=== PATIENT | female | born 1940 | race Caucasian/White ===

== ENCOUNTER 2016-08-29 08:02 | Inpatient (IN) | payer MEDICARE, MEDICAID ==
[~2016-08-29] VITALS: Ht 157.5 cm; Wt 80.0 kg
[~2016-08-29 08:02] MED LIST: ASPI-515 PO; LEVO125C2 PO; LISI40TA PO; METF10002 PO; METF750T2 PO; PRAV20TA2 PO; PRAV80TA PO
[2016-08-29] MEDS ORDERED: ONDANSETRON 2MG/ML, 2ML IVPush ONE (09:00)
[2016-08-29] MEDS ORDERED: MORPHINE SULFATE 4 MG/ML, 1ML IVPush PRN (09:00)
[2016-08-29] MEDS ORDERED: SODIUM CHLORIDE FLUSH 10ML SYR IVF ONE (09:00)
[2016-08-29] MEDS ORDERED: SODIUM CHLORIDE 0.9% 1,000ML IVBOLUS ONE ×2 (09:00→11:30)
[2016-08-29 09:19] LABS: HEMOGLOBIN 17.1 g/dL (11.7-16.4)
[2016-08-29] MEDS ORDERED: ONDANSETRON 2MG/ML, 2ML ONE (09:23)
[2016-08-29] MEDS ORDERED: MORPHINE SULFATE 4 MG/ML, 1ML ONE (09:23)
[2016-08-29 09:33] LABS: ASPARTATE AMINO TRANSFERASE 26 U/L (15-37); BLOOD UREA NITROGEN 17 mg/dL (7-18)
[2016-08-29] MEDS ORDERED: OMNIPAQUE 350 MG/ML, 100ML BOTTLE ONE (10:34)
[2016-08-29] MEDS ORDERED: CEFTRIAXONE PMX 1GM/50ML 50 ML IV ONE (11:30)
[2016-08-29] MEDS ORDERED: NS + 20MEQ KCL 1,000 ML IV ONE (11:57)
[2016-08-29] MEDS ORDERED: D5%-0.45NACL+KCL 20MEQ 1,000 ML IV SCH (12:33)
[2016-08-29] MEDS ORDERED: LABETALOL 5MG/ML, 20ML IVPush PRN (13:00)
[2016-08-29] MEDS ORDERED: INSULIN ASPART 100 UNITS/ML, PEN SQ-INSULIN SCH (13:00)
[2016-08-29] MEDS ORDERED: ENALAPRILAT 1.25 MG/ML, 2ML IVPush PRN (13:00)
[2016-08-29] MEDS ORDERED: CEFTRIAXONE PMX 1GM/50ML 50 ML ONE (13:39)
[2016-08-29 14:41] VITALS: BP 125/81
[2016-08-29] MEDS: INSULIN ASPART 100 UNITS/ML, PEN SQ-INSULIN SCH ×2 (15:48→21:00)
[2016-08-29 19:21] VITALS: BP 109/72
[2016-08-29] MEDS: FAMOTIDINE 20 MG/2 ML IVPush SCH (21:42)
[2016-08-29] MEDS: DIPHENHYDRAMINE 50 MG/ML, 1ML IVPush PRN (23:13)
[2016-08-29] MEDS: D5%-0.45NACL+KCL 20MEQ 1,000 ML IV SCH (23:13)
[2016-08-30 01:07] VITALS: BP 130/68
[2016-08-30] MEDS: INSULIN ASPART 100 UNITS/ML, PEN SQ-INSULIN SCH ×4 (03:24→22:24)
[2016-08-30 05:56] LABS: HEMOGLOBIN 14.1 g/dL (11.7-16.4)
[2016-08-30] MEDS: D5%-0.45NACL+KCL 20MEQ 1,000 ML IV SCH ×3 (06:05→18:45)
[2016-08-30 06:14] LABS: BLOOD UREA NITROGEN 19 mg/dL (7-18)
[2016-08-30 07:40] VITALS: BP 148/91
[2016-08-30] MEDS: FAMOTIDINE 20 MG/2 ML IVPush SCH ×2 (08:14→22:08)
[2016-08-30] MEDS ORDERED: LEVOTHYROXINE SODIUM 200 MCG INJ IVPush SCH (09:00)
[2016-08-30 14:21] VITALS: BP 122/79
[2016-08-30] MEDS: morphine SULFATE 10 MG/ML, 1ML IVPush PRN (14:33)
[2016-08-30] MEDS: ONDANSETRON 2MG/ML, 2ML IVPush PRN (16:39)
[2016-08-30 18:29] VITALS: BP 128/76
[2016-08-30] MEDS: DIPHENHYDRAMINE 50 MG/ML, 1ML IVPush PRN (23:11)
[2016-08-31 01:40] VITALS: BP 126/80
[2016-08-31] MEDS: D5%-0.45NACL+KCL 20MEQ 1,000 ML IV SCH ×3 (02:05→22:04)
[2016-08-31] MEDS: INSULIN ASPART 100 UNITS/ML, PEN SQ-INSULIN SCH ×4 (03:00→21:39)
[2016-08-31] MEDS: morphine SULFATE 10 MG/ML, 1ML IVPush PRN ×2 (05:46→15:45)
[2016-08-31 06:32] VITALS: BP 152/80
[2016-08-31] MEDS: FAMOTIDINE 20 MG/2 ML IVPush SCH ×2 (10:19→21:28)
[2016-08-31] MEDS: LEVOTHYROXINE 100 MCG INJ IVPush SCH (10:20)
[2016-08-31 18:49] VITALS: BP 151/84
[2016-08-31] MEDS: DIPHENHYDRAMINE 50 MG/ML, 1ML IVPush PRN (22:07)
[2016-09-01 01:04] VITALS: BP 153/89
[2016-09-01] MEDS: INSULIN ASPART 100 UNITS/ML, PEN SQ-INSULIN SCH ×4 (02:48→21:00)
[2016-09-01] MEDS: D5%-0.45NACL+KCL 20MEQ 1,000 ML IV SCH ×4 (05:03→22:40)
[2016-09-01 07:04] VITALS: BP 169/99
[2016-09-01] MEDS: morphine SULFATE 10 MG/ML, 1ML IVPush PRN (07:45)
[2016-09-01] MEDS: ONDANSETRON 2MG/ML, 2ML IVPush PRN (07:53)
[2016-09-01] MEDS: FAMOTIDINE 20 MG/2 ML IVPush SCH ×2 (08:52→21:34)
[2016-09-01] MEDS: LEVOTHYROXINE 100 MCG INJ IVPush SCH (08:52)
[2016-09-01 15:03] VITALS: BP 135/81
[2016-09-01 20:30] VITALS: BP 151/87
[2016-09-02] MEDS: DIPHENHYDRAMINE 50 MG/ML, 1ML IVPush PRN ×2 (00:19→23:33)
[2016-09-02 01:20] VITALS: BP 154/84
[2016-09-02] MEDS: D5%-0.45NACL+KCL 20MEQ 1,000 ML IV SCH (05:20)
[2016-09-02] MEDS: INSULIN ASPART 100 UNITS/ML, PEN SQ-INSULIN SCH ×4 (06:43→21:00)
[2016-09-02 07:54] VITALS: BP 145/84
[2016-09-02] MEDS: LEVOTHYROXINE 100 MCG INJ IVPush SCH (09:38)
[2016-09-02] MEDS: FAMOTIDINE 20 MG/2 ML IVPush SCH ×2 (09:39→23:33)
[2016-09-02 13:22] VITALS: BP 132/84
[2016-09-02] MEDS: ONDANSETRON 2MG/ML, 2ML IVPush PRN (18:30)
[2016-09-02 20:05] VITALS: BP 134/78
[2016-09-02] MEDS: SODIUM CHLORIDE FLUSH 3ML SYRINGE IVF SCH (23:37)
[2016-09-03 04:04] VITALS: BP 124/61
[2016-09-03] MEDS: INSULIN ASPART 100 UNITS/ML, PEN SQ-INSULIN SCH ×2 (06:00→11:31)
[2016-09-03 08:05] VITALS: BP 154/90
[2016-09-03] MEDS: FAMOTIDINE 20 MG/2 ML IVPush SCH (08:11)
[2016-09-03] MEDS: LEVOTHYROXINE 100 MCG INJ IVPush SCH (08:12)
[2016-09-03] MEDS: SODIUM CHLORIDE FLUSH 3ML SYRINGE IVF SCH (08:12)
[2016-09-03 14:45] VITALS: BP 149/89
== END 2016-09-03 15:00 | disposition home or self-care (01) | DRG 390 ==
LOC: EDBD 10:40 → ED 10:40 → EDIP 12:33 → 4NOR 14:13
PROVIDERS: ADMIT Surgery; ATTEND Surgery
DX: K56.60 Unspecified intestinal obstruction (principal); D72.829 Elevated white blood cell count, unspecified; E03.9 Hypothyroidism, unspecified; E11.65 Type 2 diabetes mellitus with hyperglycemia; E66.9 Obesity, unspecified; E78.5 Hyperlipidemia, unspecified; E86.0 Dehydration; I10 Essential (primary) hypertension; Z85.41 Personal history of malignant neoplasm of cervix uteri; Z90.49 Acquired absence of other specified parts of digestive tract; Z90.710 Acquired absence of both cervix and uterus; Z68.32 Body mass index [BMI] 32.0-32.9, adult
CPT/HCPCS: 36415; 74020; 74177; 74250; 80048; 80053; 81001; 82962; 83605; 85025; 85610; 93005; 96361; 96374; 96375; J0696; J1815; J2405; J3480; Q9967; J1200; J2270; J7030; S0028

== ENCOUNTER 2017-07-08 19:25 | Emergency (ER) | payer MEDICARE, MEDICAID ==
[~2017-07-08] VITALS: Ht 165.1 cm; Wt 86.6 kg
[2017-07-08] MEDS ORDERED: MORPHINE SULFATE 4 MG/ML, 1ML ONE (19:53)
[2017-07-08] MEDS ORDERED: FAMOTIDINE 20 MG/2 ML ONE (19:53)
[2017-07-08] MEDS ORDERED: MAALOX/HYOSCYAMINE/LIDOCAINE 45 ML BTL ONE (19:53)
[2017-07-08] MEDS ORDERED: MORPHINE SULFATE 4 MG/ML, 1ML IVPush PRN (20:00)
[2017-07-08] MEDS ORDERED: MAALOX/HYOSCYAMINE/LIDOCAINE 45 ML BTL PO ONE (20:00)
[2017-07-08] MEDS ORDERED: SODIUM CHLORIDE 0.9% 1,000ML IVBOLUS ONE (20:00)
[2017-07-08] MEDS ORDERED: FAMOTIDINE 20 MG/2 ML IVP ONE (20:00)
[2017-07-08 20:09] LABS: BASOPHILS # (AUTO) 0.02 x10^3/uL (0-0.1); BASOPHILS % (AUTO) 0 % (0-1); EOSINOPHILS # (AUTO) 0.28 x10^3/uL (0-0.4); EOSINOPHILS % (AUTO) 4 % (1-7); LYMPHOCYTES % (AUTO) 23 % (22-44); MD NO; MEAN CORPUSCULAR HEMOGLOBIN 29.8 pg (27.0-34.8); MEAN CORPUSCULAR HGB CONC 33.3 g/dL (32.4-35.8); MEAN CORPUSCULAR VOLUME 89.6 fL (80-100); MEAN PLATELET VOLUME 9.6 fL (7.4-10.4); MONOCYTES # (AUTO) 0.44 x10^3/uL (0.2-0.8); MONOCYTES % (AUTO) 7 % (2-9); NEUTROPHILS % (AUTO) 66 % (42-75); PLATELET COUNT 215 x10^3/uL (130-400); RED BLOOD COUNT 5.29 x10^6/uL (3.82-5.3); RED CELL DISTRIBUTION WIDTH 13.8 % (9.6-15.2)
[2017-07-08 20:19] LABS: ALANINE AMINOTRANSFERASE 27 U/L (12-78); ALBUMIN 3.7 g/dL (3.4-5.0); ANION GAP 8 mmol/L (5-15); CALCIUM 8.9 mg/dL (8.5-10.1); CHLORIDE 98 mmol/L (98-107); CREATININE 0.85 mg/dL (0.55-1.02)
[2017-07-08 20:24] LABS: ALKALINE PHOSPHATASE 136 U/L (45-117); BILIRUBIN,TOTAL 0.6 mg/dL (0.2-1.0); TOTAL PROTEIN 7.6 g/dL (6.4-8.2); TROPONIN I < 0.015 ng/mL (0.000-0.045)
[2017-07-08] MEDS ORDERED: OMNIPAQUE 350 MG/ML, 100ML BOTTLE ONE (21:00)
[2017-07-08] MEDS ORDERED: LISINOPRIL 20 MG TABLET ONE (21:02)
[2017-07-08] MEDS ORDERED: LISINOPRIL 20 MG TABLET PO ONE (21:30)
[2017-07-08 22:34] VITALS: BP 174/88
== END 2017-07-08 22:37 | disposition home or self-care (01) ==
LOC: ED 19:32
DX: K21.9 Gastro-esophageal reflux disease without esophagitis (principal); K44.9 Diaphragmatic hernia without obstruction or gangrene; Z76.0 Encounter for issue of repeat prescription; I10 Essential (primary) hypertension; E11.9 Type 2 diabetes mellitus without complications; E03.9 Hypothyroidism, unspecified; E78.5 Hyperlipidemia, unspecified; J44.9 Chronic obstructive pulmonary disease, unspecified; Z90.49 Acquired absence of other specified parts of digestive tract
CPT/HCPCS: 36415; 71045; 74177; 80053; 83690; 84484; 85025; 93005; 96361; 96374; 96375; 99285; J7030; Q9967; S0028

== ENCOUNTER 2018-06-16 13:24 | Emergency (ER) | payer MEDICAID, MEDICARE ==
[~2018-06-16] VITALS: Ht 152.4 cm; Wt 95.5 kg
--- NOTE | 2018-06-16 13:59 | NUR ---
MD AT BEDSIDE AT THIS TIME
[2018-06-16] MEDS ORDERED: LISINOPRIL 20 MG TABLET ONE (14:17)
[2018-06-16] MEDS ORDERED: LISINOPRIL 20 MG TABLET PO ONE (14:30)
[2018-06-16] MEDS ORDERED: LEVOTHYROXINE 125 MCG TABLET PO ONE (14:30)
[2018-06-16 14:35] LABS: BASOPHILS # (AUTO) 0.05 x10^3/uL (0-0.1); BASOPHILS % (AUTO) 1 % (0-1); EOSINOPHILS # (AUTO) 0.22 x10^3/uL (0-0.4); EOSINOPHILS % (AUTO) 4 % (1-7); LYMPHOCYTES % (AUTO) 26 % (22-44); MD NO; MEAN CORPUSCULAR HEMOGLOBIN 30.9 pg (27.0-34.8); MEAN CORPUSCULAR VOLUME 90.8 fL (80-100); MEAN PLATELET VOLUME 9.1 fL (7.4-10.4); MONOCYTES # (AUTO) 0.25 x10^3/uL (0.2-0.8); MONOCYTES % (AUTO) 4 % (2-9); NEUTROPHILS # (AUTO) 3.65 x10^3/uL (1.8-6.8); NEUTROPHILS % (AUTO) 64 % (42-75); PLATELET COUNT 173 x10^3/uL (130-400); RED BLOOD COUNT 5.05 x10^6/uL (3.82-5.3)
[2018-06-16 14:44] LABS: ALANINE AMINOTRANSFERASE 23 U/L (12-78); ALBUMIN 3.8 g/dL (3.4-5.0); ANION GAP 7 mmol/L (5-15); CALCIUM 8.4 mg/dL (8.5-10.1); CHLORIDE 99 mmol/L (98-107); CREATININE 0.92 mg/dL (0.55-1.02)
--- NOTE | 2018-06-16 14:45 | NUR ---
PT TO ED FOR "NOT FEELING GOOD ALL OVER." PT STATES OUT OF HEART AND BLOOD PRESSURE MEDICATION FOR UNKNOWN NUMBER OF MONTHS. PT CONNECTED TO ALL MONITORS. HTN. LABS COLLECTED. IMAGING COMPLETE. PT MEDICATED PER AUG. [facility] AWAITING FURTHER ORDERS AT THIS TIME.
[2018-06-16 14:47] VITALS: BP 184/102
[2018-06-16 14:48] LABS: ALKALINE PHOSPHATASE 132 U/L (45-117); BILIRUBIN,TOTAL 0.5 mg/dL (0.2-1.0); T4 (THYROXINE) 1.1 mcg/dL (4.8-13.9); TOTAL PROTEIN 7.6 g/dL (6.4-8.2); TROPONIN I < 0.015 ng/mL (0.000-0.045)
--- NOTE | 2018-06-16 15:33 | NUR ---
LUNCH RN: PT RESTING IN BED, [place]. PT HAS GOOD CAP REFILL AND EQUAL AND UNLABORED RESPIRATIONS.
--- NOTE | 2018-06-16 15:55 | NUR ---
Patient/Caregiver given discharge instructions and they have confirmed that they understand the instructions. Patient ambulatory with steady gait.
== END 2018-06-16 16:28 | disposition home or self-care (01) ==
LOC: ED 16:10
DX: E11.65 Type 2 diabetes mellitus with hyperglycemia (principal); I10 Essential (primary) hypertension; E03.9 Hypothyroidism, unspecified; J44.9 Chronic obstructive pulmonary disease, unspecified; K21.9 Gastro-esophageal reflux disease without esophagitis; E78.5 Hyperlipidemia, unspecified
CPT/HCPCS: 36415; 71045; 80053; 84436; 84443; 84484; 85025; 93005; 99284

== ENCOUNTER 2019-09-15 13:29 | Inpatient (IN) | payer MEDICARE, MEDICAID ==
[~2019-09-15] VITALS: Ht 157.5 cm; Wt 89.9 kg
[~2019-09-15 13:29] MED LIST changes: -METF750T2 PO; +METF750T42 PO
[2019-09-15] MEDS ORDERED: METF500T17 PO (13:40)
--- NOTE | 2019-09-15 14:07 | NUR ---
ORTHO VS DONE. [employer] BS TO TRANSLATE. PT STATES SHE HASN'T TAKEN HER MEDS IN TWO MONTHS (RAN OUT, NO CURRENT PCP).
--- NOTE | 2019-09-15 14:18 | NUR ---
EKG AT BS
[2019-09-15 14:24] LABS: BASOPHILS # (AUTO) 0.03 x10^3/uL (0-0.1); BASOPHILS % (AUTO) 1 % (0-1); EOSINOPHILS # (AUTO) 0.34 x10^3/uL (0-0.4); EOSINOPHILS % (AUTO) 5 % (1-7); LYMPHOCYTES # (AUTO) 1.33 x10^3/uL (1-3.4); LYMPHOCYTES % (AUTO) 18 % (22-44); MD NO; MEAN CORPUSCULAR HEMOGLOBIN 30.3 pg (27.0-34.8); MEAN CORPUSCULAR VOLUME 91.9 fL (80-100); MEAN PLATELET VOLUME 8.9 fL (7.4-10.4); MONOCYTES # (AUTO) 0.26 x10^3/uL (0.2-0.8); MONOCYTES % (AUTO) 4 % (2-9); NEUTROPHILS # (AUTO) 5.35 x10^3/uL (1.8-6.8); NEUTROPHILS % (AUTO) 73 % (42-75); PLATELET COUNT 207 x10^3/uL (130-400); RED CELL DISTRIBUTION WIDTH 14.7 % (9.6-15.2)
[2019-09-15 14:32] LABS: ALANINE AMINOTRANSFERASE 14 U/L (12-78); ALBUMIN 3.8 g/dL (3.4-5.0); ANION GAP 2 mmol/L (5-15); CALCIUM 9.1 mg/dL (8.5-10.1); CHLORIDE 98 mmol/L (98-107); CREATININE 0.94 mg/dL (0.55-1.02)
[2019-09-15 14:36] LABS: ALKALINE PHOSPHATASE 118 U/L (45-117); BILIRUBIN,TOTAL 0.7 mg/dL (0.2-1.0); TOTAL PROTEIN 8.5 g/dL (6.4-8.2); TROPONIN I < 0.015 ng/mL (0.000-0.045)
[2019-09-15 15:27] LABS: MICROSCOPIC NOT IND
[2019-09-15 15:31] LABS: CULTURE INDICATED? NO
[2019-09-15] MEDS ORDERED: hydrALAzine 20 MG/ML, 1ML IV PRN (17:00)
--- NOTE | 2019-09-15 17:01 | NUR ---
PT REPORT TO MARGE STEELE RN. PT CARE TRANSFERRED.
[2019-09-15] MEDS ORDERED: ENOXAPARIN 40 MG/0.4 ML ONE (17:31)
[2019-09-15] MEDS: ENOXAPARIN 40 MG/0.4 ML SQ SCH (17:37)
--- NOTE | 2019-09-15 17:41 | NUR ---
PT REPORT CALLED TO HEBER LEHMAN FOR ROOM [phone]
[2019-09-15 18:25] VITALS: BP 184/95
[2019-09-15 19:03] LABS: TROPONIN I < 0.015 ng/mL (0.000-0.045)
[2019-09-15 20:00] VITALS: BP 146/77
[2019-09-15] MEDS ORDERED: DIPH25CA61 PO (20:15)
[2019-09-15] MEDS ORDERED: ACET325T14 PO (20:15)
[2019-09-15] MEDS ORDERED: ACET-76 PO (20:16)
[2019-09-15] MEDS ORDERED: Nyquil PO (20:19)
[2019-09-15] MEDS: PRAVASTATIN 20 MG TABLET PO SCH (21:59)
[2019-09-15] MEDS: INSULIN LISPRO 100 UNITS/ML, PEN SQ-INSULIN SCH (22:00)
[2019-09-16] VITALS (7 sets, daily range): BP systolic 123–183; BP diastolic 72–122
[2019-09-16] MEDS ORDERED: TEMAZEPAM 15 MG CAPSULE PO ONE ×2 (01:00→21:30)
[2019-09-16 01:57] LABS: TROPONIN I < 0.015 ng/mL (0.000-0.045)
[2019-09-16] MEDS: LEVOTHYROXINE 125 MCG TABLET PO SCH (05:25)
[2019-09-16 05:41] LABS: BASOPHILS # (AUTO) 0.03 x10^3/uL (0-0.1); BASOPHILS % (AUTO) 1 % (0-1); EOSINOPHILS # (AUTO) 0.35 x10^3/uL (0-0.4); EOSINOPHILS % (AUTO) 6 % (1-7); LYMPHOCYTES # (AUTO) 1.29 x10^3/uL (1-3.4); LYMPHOCYTES % (AUTO) 23 % (22-44); MD NO; MEAN CORPUSCULAR HEMOGLOBIN 30.6 pg (27.0-34.8); MEAN CORPUSCULAR HGB CONC 33.4 g/dL (32.4-35.8); MEAN CORPUSCULAR VOLUME 91.4 fL (80-100); MEAN PLATELET VOLUME 8.9 fL (7.4-10.4); MONOCYTES # (AUTO) 0.31 x10^3/uL (0.2-0.8); MONOCYTES % (AUTO) 6 % (2-9); NEUTROPHILS # (AUTO) 3.65 x10^3/uL (1.8-6.8); NEUTROPHILS % (AUTO) 65 % (42-75); PLATELET COUNT 193 x10^3/uL (130-400); RED BLOOD COUNT 4.72 x10^6/uL (3.82-5.3); RED CELL DISTRIBUTION WIDTH 14.4 % (9.6-15.2)
[2019-09-16 05:54] LABS: CHLORIDE 102 mmol/L (98-107)
[2019-09-16 06:08] LABS: ALANINE AMINOTRANSFERASE 12 U/L (12-78); ALBUMIN 3.2 g/dL (3.4-5.0); ALKALINE PHOSPHATASE 95 U/L (45-117); ANION GAP 6 mmol/L (5-15); BILIRUBIN,TOTAL 0.5 mg/dL (0.2-1.0); CALCIUM 8.4 mg/dL (8.5-10.1); CHOL/HDL RATIO 5.9; CHOLESTEROL, TOTAL 279 mg/dL (140-239); CREATININE 0.72 mg/dL (0.55-1.02); HDL CHOL % 17 % (28-40); HDL CHOLESTEROL (DIRECT) 47 mg/dL (40-60); LDL CHOLESTEROL,CALCULATED 157 mg/dL (54-169); LDL/HDL RATIO 3.3 (0.5-3.0); TRIGLYCERIDES 375 mg/dL (50-200); VLDL CHOLESTEROL 75 mg/dL (0-25)
[2019-09-16] MEDS: INSULIN LISPRO 100 UNITS/ML, PEN SQ-INSULIN SCH ×4 (07:00→20:35)
[2019-09-16] MEDS ORDERED: LEVOTHYROXINE 125 MCG TABLET PO SCH (09:00)
[2019-09-16] MEDS: INSULIN GLARGINE 100 UNITS/ML, PEN SQ-INSULIN SCH ×2 (09:22→20:36)
[2019-09-16] MEDS: LISINOPRIL 40 MG TABLET PO SCH (09:22)
[2019-09-16] MEDS ORDERED: POTASSIUM CHLORIDE 20 MEQ TAB.ER.PRT PO ONE (09:30)
[2019-09-16] MEDS: ENOXAPARIN 40 MG/0.4 ML SQ SCH (17:34)
[2019-09-16] MEDS: PRAVASTATIN 20 MG TABLET PO SCH (20:34)
[2019-09-16] MEDS ORDERED: ATORVASTATIN 20 MG TABLET PO SCH (21:00)
[2019-09-17 01:33] VITALS: BP 124/75
[2019-09-17] MEDS: LEVOTHYROXINE 125 MCG TABLET PO SCH (05:29)
[2019-09-17 06:39] VITALS: BP 121/73
[2019-09-17] MEDS: INSULIN LISPRO 100 UNITS/ML, PEN SQ-INSULIN SCH ×3 (07:58→17:03)
[2019-09-17] MEDS: INSULIN GLARGINE 100 UNITS/ML, PEN SQ-INSULIN SCH (08:35)
[2019-09-17] MEDS: LISINOPRIL 40 MG TABLET PO SCH (08:35)
[2019-09-17 11:00] VITALS: BP 160/98
[2019-09-17 11:20] VITALS: BP 182/110
[2019-09-17 11:56] VITALS: BP 157/85
[2019-09-17] MEDS ORDERED: LEVO125C2 PO (14:13)
[2019-09-17] MEDS ORDERED: AMLO-150 PO (14:13)
[2019-09-17] MEDS ORDERED: GLIP5TAB10 PO (14:13)
[2019-09-17] MEDS ORDERED: PRAV20TA2 PO (14:13)
[2019-09-17] MEDS ORDERED: METF500T17 PO (14:13)
[2019-09-17] MEDS ORDERED: LISI40TA PO (14:13)
[2019-09-17] MEDS: ENOXAPARIN 40 MG/0.4 ML SQ SCH (17:00)
[2019-09-18] MEDS ORDERED: AMLODIPINE 5 MG TABLET PO SCH (09:00)
== END 2019-09-17 17:46 | disposition home health service (06) | DRG 74 ==
LOC: ED 16:08 → 4WST 16:36 → UNDOADMIN 16:36 → EDIP 16:36 → 4WST 18:10 → UNDODISIN 09-17 16:30 → ED 09-17 16:40 → 4WST 09-17 16:40 → ED 09-17 19:23 → 4WST 09-17 19:23
PROVIDERS: ADMIT Internal Medicine; ATTEND Internal Medicine
DX: G90.8 Other disorders of autonomic nervous system (principal); E78.5 Hyperlipidemia, unspecified; E03.9 Hypothyroidism, unspecified; R00.1 Bradycardia, unspecified; E11.9 Type 2 diabetes mellitus without complications; K44.9 Diaphragmatic hernia without obstruction or gangrene; E87.6 Hypokalemia; K21.9 Gastro-esophageal reflux disease without esophagitis; I25.2 Old myocardial infarction; Z91.14 Patient's other noncompliance with medication regimen; I10 Essential (primary) hypertension
CPT/HCPCS: 36415; 70450; 71045; 80053; 80061; 81003; 82962; 83036; 83735; 83880; 84439; 84443; 84484; 85025; 93005; 93306; 96374; G0378; J1650; J0360; J1815